=== PATIENT | male | born 1995 | race Caucasian/White ===

== ENCOUNTER 2021-04-12 17:19 | Emergency (ER) | payer OTHER, SELFPAY ==
[2021-04-12 17:50] VITALS: BP 128/82; PULSE 75; RESP 16; TEMP 36.6; O2SAT 99; BMI 29.2
--- NOTE | 2021-04-12 17:55 | DI.RAD.S_ITS ---
PROCEDURE: XR ELBOW LT MIN 3V INDICATIONS: L elbow injury TECHNIQUE: 3 views of the elbow were acquired. COMPARISON: None. FINDINGS: The lateral view is suboptimal. Bones: No fractures or dislocations. No suspicious bony lesions. Soft tissues: No elbow joint effusion. No suspicious soft tissue calcifications. IMPRESSION: No definitive fractures. The lateral view, however, is suboptimal. If clinically indicated, a repeat lateral view could be obtained. Dictated by: Trupti Iyer M.D. on 04/12/2021 at 17:38 Approved by: Trupti Iyer M.D. on 04/12/2021 at 17:40
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
[2021-04-12] MEDS: BACITRACIN OINT 0.9 GM PCKT 1 APPLIC TOP (21:28)
[2021-04-12] MEDS: cephALEXin 250 MG CAPSULE 500 MG PO (21:29)
[2021-04-12 21:39] VITALS: BP 142/66; PULSE 66; RESP 18; O2SAT 99
== END 2021-04-12 21:40 | disposition home or self-care (01) ==
PROVIDERS: Emergency Provider Emergency Medicine
DX: S50.02XA Contusion of left elbow, initial encounter (principal); S51.002A Unspecified open wound of left elbow, initial encounter; V19.9XXA Pedal cyclist (driver) (passenger) injured in unspecified traffic accident, initial encounter
CPT/HCPCS: 73080; 99283